=== PATIENT | female | born 1980 | race Caucasian/White ===

== ENCOUNTER 2017-08-21 10:58 | Emergency (ER) | payer SELFPAY ==
[2017-08-21 12:58] VITALS: BP 154/99
--- NOTE | 2017-08-21 13:35 | UC ---
Throat Pain/Nasal Osvaldo HPI - HPI Summary HPI Summary: 4 weeks of cough works in the school at [employer], had a fever the first week - History of Current Complaint Chief Complaint: UCGeneralIllness Stated Complaint: CONGESTION/COUGH Time Seen by Provider: 08/21/17 13:26 Hx Obtained From: Patient Hx Last Menstrual Period: 08/13/17 ?: No Onset/Duration: Sudden Onset, Lasting Weeks - 4, Still Present Severity: Moderate Cough: Nonproductive Associated Signs & Symptoms: Positive: Negative - Allergies/Home Medications Allergies/Adverse Reactions: Allergies Allergy/AdvReac Type Severity Reaction Status Date / Time No Known Allergies Allergy Verified 08/21/17 11:13 PMH/Surg Hx/FS Hx/Imm Hx Previously Healthy: Yes - Surgical History Surgical History: Yes Surgery Procedure, Year, and Place: - Family History Known Family History: Positive: None - Social History Occupation: Employed Full-time Lives: With Family Alcohol Use: Occasionally Substance Use Type: None Smoking Status (MU): Never Smoked Tobacco Review of Systems Constitutional: Negative Skin: Negative Eyes: Negative ENT: Negative Respiratory: Cough Cardiovascular: Negative Gastrointestinal: Negative Genitourinary: Negative Motor: Negative Neurovascular: Negative Musculoskeletal: Negative Neurological: Negative Psychological: Negative Is Patient Immunocompromised?: No All Other Systems Reviewed And Are Negative: Yes Physical Exam Triage Information Reviewed: Yes Appearance: Well-Appearing, No Pain Distress, Well-Nourished Vital Signs: Initial Vital Signs Temp 97.9 F 08/21/17 11:08 Pulse 91 08/21/17 11:08 Resp 18 08/21/17 11:08 BP 158/81 08/21/17 11:08 Pulse Ox 97 08/21/17 11:08 Vital Signs Reviewed: Yes Eye Exam: Normal Eyes: Positive: Conjunctiva Clear ENT Exam: Normal ENT: Positive: Normal ENT inspection, Hearing grossly normal, Pharynx normal, TMs normal, Uvula midline. Negative: Nasal congestion, TM bulging, Tonsillar swelling, Tonsillar exudate, Trismus, Muffled voice, Hoarse voice, Dental tenderness, Sinus tenderness Dental Exam: Normal Neck exam: Normal Neck: Positive: Supple, Nontender, No Lymphadenopathy Respiratory Exam: Normal Respiratory: Positive: Chest non-tender, Lungs clear, Normal breath sounds, No respiratory distress, No accessory muscle use Cardiovascular Exam: Normal Cardiovascular: Positive: RRR, No Murmur, Pulses Normal, Brisk Capillary Refill Musculoskeletal Exam: Normal Musculoskeletal: Positive: Strength Intact, ROM Intact, No Edema Neurological Exam: Normal Neurological: Positive: Alert, Muscle Tone Normal Psychological Exam: Normal Skin Exam: Normal Throat Pain/Nasal Course/Dx - Course Assessment/Plan: increase fluids, zithromax, albuterol, follow with pcp - Differential Dx/Diagnosis Provider Diagnoses: Bronchitis, Elevated Blood Pressure with out dx of hypertension Discharge - Discharge Plan Condition: Stable Disposition: HOME Prescriptions: Albuterol HFA INHALER* [Ventolin HFA Inhaler*] 2 puff INH Q4H PRN #1 mdi PRN Reason: cough Azithromycin TAB* [Zithromax TAB (Z-RAY) 250 mg #6 tabs] 2 tab PO .TODAY, THEN 1 DAILY #6 tab Patient Education Materials: Guaifenesin (By mouth), How to Use a Metered-Dose Inhaler (ED), Hypertension (ED), Acute Cough (ED) Referrals: Stacy Kelsey MD [Primary Care Provider] - 2 Weeks Additional Instructions: Avoid cough medications with Sudafed or Pseudoephedrine was they can raise your blood pressure
== END 2017-08-21 13:42 | disposition home or self-care (01) ==
LOC: UCEAST 10:58
DX: J40 Bronchitis, not specified as acute or chronic (principal); R03.0 Elevated blood-pressure reading, without diagnosis of hypertension
CPT/HCPCS: 99212; G0463

== ENCOUNTER 2021-09-16 05:46 | Inpatient (IN) ==
[2021-09-16] MEDS ORDERED: Buffered Lidocaine 1% SYRIN 1 ml INTRADERM ONE (06:00)
[2021-09-16] MEDS ORDERED: Lactated Ringers 1000 ml BAG 1,000 ML IV SCH (06:00)
[2021-09-16] MEDS ORDERED: ceFAZolin 2 GM PREMIX 2 GM/50 ML BAG ONE (06:05)
[2021-09-16] MEDS ORDERED: ceFAZolin 1 GM ADVAN 1 GM ADDV.VIAL IVPB ONE (06:05)
[2021-09-16] MEDS ORDERED: Heparin 5000 UNITS/ML 1 mL VIAL ONE (06:05)
[2021-09-16] MEDS ORDERED: Heparin 5000 UNITS/ML 1 mL VIAL SUBCUT ONE (06:29)
[2021-09-16] MEDS ORDERED: Ondansetron 4 mg VIAL 2 MG/ML 2 ml VIAL ONE ×2 (06:49→10:50)
[2021-09-16] MEDS ORDERED: Propofol 10 MG/ML 20 ML BTL ONE (06:49)
[2021-09-16] MEDS ORDERED: fentaNYL 100 mcg/2 ml 50 MCG/ML VIAL ONE ×2 (06:49→08:03)
[2021-09-16] MEDS ORDERED: Dexamethasone IV 4 MG/ML VIAL 1 ml VIAL ONE (06:49)
[2021-09-16] MEDS ORDERED: Rocuronium 50 mg VIAL 10 mg/ml 5 ml VIAL (50 mg) ONE ×2 (06:49→08:32)
[2021-09-16] MEDS ORDERED: Midazolam 2 mg/2 ml VIAL 1 mg/ml 2 ml VIAL (2 mg) ONE (06:49)
[2021-09-16] MEDS ORDERED: Lidocaine 2% PF 5 ML VIAL ONE (06:49)
[2021-09-16] MEDS ORDERED: Methylene Blue 0.5 % 50 MG/10 ML AMP IV ONE (06:52)
[2021-09-16] MEDS ORDERED: Lidocaine 1% w EPI 1:100,000 MDV 20 ML VIAL ONE (06:53)
[2021-09-16] MEDS ORDERED: Bupivacaine 0.5% SDV PF 30ML VIAL ONE (06:53)
[2021-09-16] MEDS ORDERED: HYDROmorphone 0.5 MG/0.5 ML SYRINGE ONE ×2 (08:02→08:03)
[2021-09-16] MEDS ORDERED: Glycopyrrolate IV 0.2 MG/ML 1 ML VIAL ONE (08:17)
[2021-09-16] MEDS ORDERED: Ondansetron 4 mg VIAL 2 MG/ML 2 ml VIAL IV PRN ×2 (08:42→10:27)
[2021-09-16] MEDS ORDERED: Naloxone 0.4 mg VIAL 0.4 mg/ml 1 ml VIAL IV PRN (08:42)
[2021-09-16] MEDS ORDERED: HYDROmorphone 1 MG/1 ML SYRINGE IV PRN (08:42)
[2021-09-16] MEDS ORDERED: Acetaminophen IV 1 GM/100ML 100 ML IV ONE (08:56)
[2021-09-16] MEDS ORDERED: Sevoflurane BOTTLE ONE (09:43)
[2021-09-16] MEDS ORDERED: Desflurane 240 ML INH ONE (09:44)
[2021-09-16] MEDS ORDERED: Dexmedetomidine 200 mcg/2 ml 2 ml VIAL (200 mcg) ONE (09:55)
[2021-09-16] MEDS ORDERED: Sugammadex 500 MG/5 ML 5 ml VIAL IV PUSH ONE (10:04)
[2021-09-16] MEDS ORDERED: diPHENhydraMINE IV 50 MG/ML 1 ml VIAL (BENADRYL) SLOW PUSH PRN (10:39)
[2021-09-16] MEDS ORDERED: HYDROmorphone 1 MG/1 ML SYRINGE IV SLOW PU PRN (10:39)
[2021-09-16] MEDS ORDERED: HYDROmorphone 0.5 MG/0.5 ML SYRINGE IV SLOW PU PRN (10:39)
[2021-09-16] MEDS ORDERED: HYDROmorphone 1 MG/1 ML SYRINGE ONE (11:10)
[2021-09-16] MEDS: Lactated Ringers 1000 ml BAG 1,000 ML IV SCH ×2 (13:11→22:05)
[2021-09-16] MEDS: Heparin 5000 UNITS/ML 1 mL VIAL SUBCUT SCH ×2 (14:12→22:07)
[2021-09-16] MEDS: Acetaminophen IV 1 GM/100ML 100 ML IV SCH ×2 (14:12→22:07)
[2021-09-16] MEDS: Famotidine IV 10 MG/ML 2 ml VIAL (20 mg) IV SLOW PU SCH (22:07)
[2021-09-17] MEDS: Heparin 5000 UNITS/ML 1 mL VIAL SUBCUT SCH ×2 (06:14→13:20)
[2021-09-17] MEDS: Lactated Ringers 1000 ml BAG 1,000 ML IV SCH (06:16)
[2021-09-17] MEDS: Acetaminophen IV 1 GM/100ML 100 ML IV SCH (06:16)
[2021-09-17] MEDS: Famotidine IV 10 MG/ML 2 ml VIAL (20 mg) IV SLOW PU SCH (08:49)
[2021-09-17 08:53] VITALS: BP 102/67
[2021-09-17] MEDS ORDERED: Flu vaccine *QUAD* 2021-22* 0.5 ML SYRINGE IM ONE (09:00)
[2021-09-17] MEDS ORDERED: D5W 1/2 NS KCl 20 meq 1000 ml 1,000 ML IV SCH (11:00)
[2021-09-19] MEDS ORDERED: Scopolamine PATCH Remove NOTE PATCH OFF SCH (06:30)
== END 2021-09-17 16:02 | disposition home or self-care (01) | DRG 403 ==
LOC: AA 05:46 → SSU 12:26
PROVIDERS: ADMIT Surgery; ATTEND Surgery